=== PATIENT | male | born 1985 | race Caucasian/White ===

== ENCOUNTER → 2018-06-26 | Outpatient (REF) | payer BC ==
[~2018-06-26] MED LIST: ACE500 PO; PER PO; ZOLM5 PO
[2018-06-26 09:53] LABS: PLATELET COUNT, AUTOMATED 203 K/uL (150-450)
== END ==
LOC: ZZSENDIN 09:42
PROVIDERS: ATTEND Family Medicine
DX: B54 Unspecified malaria (principal)
CPT/HCPCS: 85025; 87207